=== PATIENT | female | born 1990 | race Two or more races ===

== ENCOUNTER 2018-08-23 07:37 | Emergency (ER) | END 2018-08-23 09:31 | disposition home or self-care (01) ==

== ENCOUNTER 2019-06-20 21:43 | Outpatient (CLI) | payer OTHER ==
[~2019-06-20] VITALS: Ht 163.8 cm; Wt 81.8 kg
[~2019-06-20 21:43] MED LIST: DICY10CA40 PO; LABE200T7 PO; ONDA4TAB14 PO; PREN1TAB13 PO
[2019-06-20 22:00] VITALS: BP 121/72; PULSE 92; RESP 18; Ht 163.8 cm; Wt 81.8 kg
--- NOTE | 2019-06-20 23:51 | TRIAGE ---
OB Triage Datetime Report Generated by CPN: 06/20/2019 23:51 Datetime: 06/20/2019 23:45 Stage of : OB Triage Datetime: 06/20/2019 23:10 Labor Evaluation Frequency: 0 Monitor Mode: External Pattern: Normal: <= 5 Contractions in [address] [place]: Relaxed Heart Rate FHR Baseline Rate: 135 Monitor Mode: External US Variability: Moderate 6-25 bpm Accelerations: 15X15 Decelerations: None Category: Category I Datetime: 06/20/2019 22:40 Monitor Mode: External Monitor Mode: External US Datetime: 06/20/2019 22:16 Stage of : OB Triage Labor Evaluation Frequency: 0 Monitor Mode: External Pattern: Normal: <= 5 Contractions in [address] [place]: Relaxed Heart Rate FHR Baseline Rate: 135 Monitor Mode: External US Variability: Moderate 6-25 bpm Accelerations: 15X15 Decelerations: None Category: Category I Datetime: 06/20/2019 22:00 Stage of : OB Triage Maternal Assessment Level of Consciousness: Keenly Alert, Responsive DTR's/Clonus: DTRs 2+; No Clonus Headache: Denies Blurred Vision: No Respiratory Effort: Unlabored; Regular Rhythm; Equal Expansion Breath Sounds, Left: Clear and Equal Breath Sounds, Right: Clear and Equal Nausea/Vomiting: Denies RUQ Epigastric Pain: Denies Facial Edema: None Temperature Route: Axillary Temperature Route: Oral Fall Risk Assessment History of Falling: (0) No Secondary Diagnosis: (0) No Ambulatory Aid: (0) Bedrest/Nurse Assist IV Therapy: (0) No Gait: (0) Normal/Bedrest/Immobile Mental Status: (0) Oriented to Own Ability Fall Score: 0 Fall Risk Score Definition: No Risk: No action required Datetime: 06/20/2019 21:47 Time of Arrival: 06/20/2019 21:35 EGA: 31.0 Arrived By: Wheelchair Arrived From: Home Chief Complaint: Decreased movement Movement: Decreased Contractions: Denies/Absent Rupture of Membranes: Denies Vaginal Bleeding: None Vaginal Discharge: Denies Recent Sexual Intercouse: Denies Abdominal Trauma: Not Applicable Patient Complaints: None Time Provider Notified: 06/20/2019 22:00 Provider Notified: Dr. Kerr Initial Plan: NST, P, ALEXANDER
--- NOTE | 2019-06-21 06:34 | PN ---
Triage Information Date/Time 06/21/19 Reason for visit: DFM Weeks of Gestation 31weeks /Para A1 Diabetes: none Hypertention: induced Additional information recently moved from [place] on labetalol 100mg BID Objective Vital Signs Date Temp Pulse Resp B/P (MAP) Pulse Ox O2 O2 Flow FiO2 Time Delivery Rate 06/20/19 98.7 92 18 121/72 Room Air 22:00 (88) Heart Rate: 130's Heart Rate Comments CAT I Contractions: None Results/Medications Imaging Results BPP 06/11 ALEXANDER 9.5 Disposition: Discharge Assessment/Plan A IUP 31week DFM P discharge home with advise to drink more water for ALEXANDER 9.5 RTH prn otherwise F/U at her OB clinic NABEEL SANTANA MD Jun 21, 2019 06:34
== END 2019-06-20 23:45 | disposition home or self-care (01) ==
LOC: OBT 21:43 → L-D 21:44 → OBT 23:45
PROVIDERS: ATTEND Obstetrics & Gynecology
DX: O36.8130 Decreased fetal movements, third trimester, not applicable or unspecified (principal); Z3A.31 31 weeks gestation of pregnancy
CPT/HCPCS: 76818; G0463